=== PATIENT | male | born 1950 | race Caucasian/White ===

== ENCOUNTER 2022-05-13 12:49 | Outpatient (CLI) | payer OTHER | END 2022-05-13 13:18 | disposition home or self-care (01) | LOC: EDSEX 12:49 → SONOGRAMA 12:49 | DX: N40.1 Benign prostatic hyperplasia with lower urinary tract symptoms (principal) ==

== ENCOUNTER 2023-06-12 07:41 | Outpatient (CLI) | payer OTHER | END 2023-06-12 07:48 | disposition home or self-care (01) | LOC: SONOGRAMA 07:41 | DX: N40.0 Benign prostatic hyperplasia without lower urinary tract symptoms (principal) ==